=== PATIENT | female | born 1975 | race African-American/Black ===

== ENCOUNTER 2018-02-13 14:22 | Emergency (ER) | payer OTHER ==
[~2018-02-13] VITALS: Ht 170.2 cm; Wt 82.0 kg
[2018-02-13] MEDS ORDERED: KETOROLAC 60MG/2ML VIAL IM ONE (17:30)
[2018-02-13] MEDS ORDERED: HYDROCODONE/ACETAMINOPHEN 5/325MG TABLET PO ONE (17:30)
[2018-02-13] MEDS ORDERED: DIAZEPAM 2 MG TABLET PO ONE (18:45)
[2018-02-13 19:09] VITALS: BP 131/68
== END 2018-02-13 19:10 | disposition home or self-care (01) ==
LOC: ER 14:22
DX: M54.5 Low back pain (principal); Z98.890 Other specified postprocedural states
CPT/HCPCS: 81025; 96372; 99283; J1885

== ENCOUNTER 2023-12-31 20:21 | Emergency (ER) | payer MEDICAID, OTHER ==
[~2023-12-31] VITALS: Ht 167.6 cm; Wt 77.0 kg
[2023-12-31 20:23] VITALS: O2SAT 97
[2023-12-31 21:09] LABS: BASOPHILS % 0.7 % (0.0-2.0); EOSINOPHILS % 2.2 % (0.0-5.0); HEMATOCRIT. 26.5 % (36.0-48.0); HEMOGLOBIN. 8.1 g/dL (12.0-16.0); LYMPHOCYTES % 31.9 % (20.0-50.0); MEAN CORPUSCULAR HEMOGLOBIN 20.2 pg (28.0-32.0); MEAN CORPUSCULAR HGB CONC 30.6 g/dL (31.0-37.0); MEAN PLATELET VOLUME 6.5 fl (7.4-10.4); MONOCYTES % 7.5 % (2.0-8.0); NEUTROPHILS % 57.7 % (40.0-76.0); PLATELET 452 x1000/uL (130-400); RED BLOOD CELL COUNT 4.01 mill/uL (4.2-5.4); RED CELL DISTRIBUTION WIDTH 19.3 % (11.6-14.6); WHITE BLOOD COUNT 8.4 x1000/uL (4.5-11.0)
[2023-12-31 21:16] LABS: CHLORIDE 111 mEq/L (98-107); POTASSIUM 3.9 mEq/L (3.5-5.1); SODIUM 140 mEq/L (136-145)
[2023-12-31 21:17] LABS: CALCIUM 9.1 mg/dL (8.7-10.4); CARBON DIOXIDE 24 mEq/L (21-32)
[2023-12-31 21:22] LABS: ADD RBC MORPHOLOGY YES; CREATININE 0.9 mg/dL (0.6-1.0); DIFFERENTIAL COMMENT 1; GLUCOSE 93 mg/dL (70-105); UREA NITROGEN BLOOD 8 mg/dL (9-23)
[2023-12-31 21:23] LABS: B-HCG QUANTITATIVE < 1 mIU/mL (<3); HCG SCREEN NEGATIVE
[2023-12-31 21:24] LABS: ALANINE AMINOTRANSFERASE 9 IU/L (10-49); ALBUMIN 4.5 g/dL (3.2-4.8); ASPARTATE AMINOTRANSFERASE 17 IU/L (<34); BILIRUBIN TOTAL 0.3 mg/dL (0.1-1.0)
[2023-12-31 21:45] LABS: HYPOCHROMASIA 2+; MICROCYTOSIS 3+; PLATELET ESTIMATE INCREASED
[2023-12-31 21:46] LABS: ANISOCYTOSIS 2+
[2023-12-31] MEDS: ACETAMINOPHEN 325MG TABLET PO PRN (21:54)
[2023-12-31] MEDS: SODIUM CHLORIDE 0.9% 1,000 ML IV ONE (21:54)
[2023-12-31] MEDS ORDERED: IBUP-2028 MT (22:25)
[2023-12-31 22:42] VITALS: BP 140/12; PULSE 83; RESP 15; TEMP 37.05852; O2SAT 99
== END 2023-12-31 22:55 | disposition home or self-care (01) ==
LOC: ER 20:21
DX: N93.9 Abnormal uterine and vaginal bleeding, unspecified (principal); D25.9 Leiomyoma of uterus, unspecified; Z98.890 Other specified postprocedural states
CPT/HCPCS: 99285; 96360; 76830; 76856; 80053; 84703; 84702; 85025; 86850; 86900; 86901; 36415; J7030

== ENCOUNTER 2025-02-25 20:23 | Emergency (ER) | payer MEDICAID ==
[~2025-02-25] VITALS: Ht 167.6 cm; Wt 64.0 kg
[~2025-02-25 20:23] MED LIST: IBUP-2028 MT
[2025-02-25 20:30] VITALS: BP 134/82; PULSE 96; RESP 18; TEMP 36.9; O2SAT 98
== END 2025-02-25 22:29 | disposition left against medical advice (07) ==
LOC: ER 20:23
DX: R00.0 Tachycardia, unspecified (principal)
CPT/HCPCS: 99281